=== PATIENT | male | born 1995 | race Caucasian/White ===

== ENCOUNTER 2025-02-16 22:09 | Emergency (ER) | payer OTHER ==
[2025-02-16 22:31] VITALS: RESP 18; TEMP 96.9; O2SAT 97
[2025-02-16] MEDS ORDERED: MORPHINE SULFATE 4 MG INJ ONE (22:47)
[2025-02-16] MEDS: MORPHINE SULFATE 4 MG INJ IM ONE (22:48)
--- NOTE | 2025-02-16 23:09 | ERPHSYRPT ---
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 Patient has swelling on the dorsum of the foot with moderate intensity sharp shooting pain with difficulty ambulation. No distal numbness. Patient had work shoes on. Patient reports having injury to the same foot in the past as well. No injury anywhere else. Allergies/Adverse Reactions: No Known Drug Allergies Allergy (Unverified 02/16/25 22:21) Hx Tetanus, Diphtheria Vaccination/Date Given: Yes Hx Influenza Vaccination/Date Given: No Hx Pneumococcal Vaccination/Date Given: No Travel Risk - International Travel Have you traveled outside of the country in past 3 weeks: No - Emerging Infectious Disease Are you exhibiting symptoms associated with any current EIDs: No - Review of Systems Constitutional: No Symptoms Ears, Nose, & Throat: No Symptoms Respiratory: No Symptoms Cardiac: No Symptoms Musculoskeletal: Injury, Joint Pain, Joint Swelling Skin: No Symptoms Neurological: No Symptoms - Past Medical History Pertinent Past Medical History: No - Past Surgical History Past Surgical History: Yes Gastrointestinal: Appendectomy - Social History Smoking Status: Light tobacco smoker Exposure to second hand smoke: No Drug Use: none - Social Determinants of Health Will the patient participate in the screening: Yes Do you worry about a steady place to live?: No Do you have any problems with any of the following?: No known problems In the past 12 months,have you had to go without utilities?: No Transportation Issues: No Has anyone in your support network made you feel unsafe?: No Have you or anyone in your house had to go w/o enough food: No - Nursing Vital Signs Nursing Vital Signs: Initial Vital Signs Temperature 96.9 F 02/16/25 22:24 Pulse Rate 74 02/16/25 22:24 Respiratory Rate 18 02/16/25 22:24 Blood Pressure 152/100 02/16/25 22:24 O2 Sat by Pulse Oximetry 97 02/16/25 22:24 Pain Scale Pain Intensity 7 - Physical Exam General Appearance: no apparent distress Neck Exam: normal inspection, full range of motion Cardiovascular/Respiratory Exam: normal breath sounds, regular rate/rhythm Foot Exam: right foot: non-tender, normal inspection, normal range of motion, no evidence of injury, limited range of motion, left foot: bone tenderness (Proximal foot dorsum on the lateral aspect), pain, soft tissue tenderness, swelling Neuro/Tendon Exam: normal sensation, normal motor functions Mental Status Exam: alert, oriented x 3, cooperative Skin Exam: normal color, warm SpO2 Interpretation: normal SpO2: 97 O2 Delivery: Room Air Ordered Tests: Active Orders 24 hr Category Date Time Status FOOT (MINIMUM 3 VIEWS) Stat Exams 02/16/25 22:44 Taken Medication Summary Discontinued Medications Generic Name Dose Route Start Last Admin Trade Name Freq PRN Reason Stop Dose Admin Morphine Sulfate 4 mg 02/16/25 22:41 02/16/25 22:48 Morphine Sulfate 4 Mg/Ml Injection IM 02/16/25 22:42 4 mg STAT ONE Administration Morphine Sulfate Confirm 02/16/25 22:47 Morphine Sulfate 4 Mg/Ml Injection Administered 02/16/25 22:48 Dose 4 mg .ROUTE .STGLO-MED ONE - Progress Progress: improved, pain not gone completely, re-examined Progress Note: 02/16/25 23:09 Differential diagnosis: Foot fractures/foot contusion/sprain/strain 29-year-old is evaluated in the ER for a heavy rock fall on the foot while he espino[employer] d his work shoes on around 8:30 PM. He is given symptomatic treatment for pain, on reevaluation feeling better. X- rays right foot questionable fracture fourth metatarsal cortical, no other obvious fracture noticed on x-rays interpreted by me, official final read is pending: , placed in the long walking boot. Recommended weightbearing as tolerated, elevation, ice, NSAIDs and outpatient orthopedic/podiatry follow-up tomorrow. Complexity of problems addressed: Acute moderate Complexity of data reviewed/analyzed: Mild to moderate Risk of complication: Low Counseled pt/family regarding: diagnosis, need for follow-up, rad results Medical Desision Making - Diagnostic Testing Diagnostic test were ordered, analyzed, and reviewed by me: Yes Radiological Interpretation: Interpreted by me - Risk of complications The pt has a mod risk of morbidity or mortality based on: Need for prescription drug management - Departure Departure Disposition: Home Clinical Impression: Foot fracture, left Condition: Stable Critical Care Time: No Referrals: Provider,Unknown [Primary Care Provider, UNKNOWN] - Follow up/PCP as directed LISA HUDSON DPM [ACTIVE STAFF, PODIATRY] - Follow up/PCP as directed Referral Note: Tomorrow for reevaluation Instructions: Foot Fracture (DC) Additional Instructions: Intermittent ice application. Tylenol/ibuprofen as needed, weightbearing as tolerated. Keep it elevated. Follow-up with podiatry/orthopedics for reevaluation between 8 and 10 AM. Return to ER for any worsening. Prescriptions: Ibuprofen 600 mg PO Q6HPRN PRN 10 Days #20 tablet PRN Reason: Pain
[2025-02-16 23:11] VITALS: BP 130/89; PULSE 71
--- NOTE | 2025-02-17 08:48 | XRAY ---
Indication: Crush injury. Comparison: None 3 nonweightbearing views left foot obtained. No bony, articular, or soft tissue abnormalities.
== END 2025-02-16 23:21 | disposition home or self-care (01) ==
LOC: ED 22:09
DX: S92.342A Displaced fracture of fourth metatarsal bone, left foot, initial encounter for closed fracture (principal); W20.8XXA Other cause of strike by thrown, projected or falling object, initial encounter; Y92.64 Mine or pit as the place of occurrence of the external cause; Y99.0 Civilian activity done for income or pay; Z72.0 Tobacco use
CPT/HCPCS: 73630; 96372; 99283; J2270